=== PATIENT | male | born 1960 | race Caucasian/White ===

== ENCOUNTER 2020-08-30 23:47 | Emergency (ER) | payer BC ==
[~2020-08-30] VITALS: Ht 167.6 cm; Wt 76.4 kg
[2020-08-31] MEDS ORDERED: ANTI FUNGAL
[2020-08-31 00:11] LABS: BASO # 0.1 (0.0-0.2); BASO % 1.4 % (0.0-2.0); EOS # 0.1 (0.0-0.7); EOS % 1.4 % (0-4.0); GRAN % 45.6 % (42.2-75.2); HEMOGLOBIN 13.8 g/dl (13.5-18.0); LYMPH # 1.7 (1.2-3.4); LYMPH % 39.4 % (20.0-51.0); MEAN CELL VOLUME 92 fl (80.0-100.0); MEAN CORPUSCULAR HEMOGLOBIN 30 pg (27.0-31.0); MEAN CORPUSCULAR HGB CONC 33 g/dl (33.0-37.0); MEAN PLATELET VOLUME 9.7 fl (7.4-10.4); MONO # 0.5 (0.1-0.6); MONO % 11.3 % (1.7-9.3); PLATELET COUNT 236 K/mm3 (130-400); RED BLOOD COUNT 4.57 M/mm3 (4.20-5.60); REDCELL DISTRIBUTION WIDTH-CV 13.2 % (11.5-14.5)
[2020-08-31 00:23] LABS: INR 0.9 (0.8-3.0); PROTHROMBIN TIME 9.8 SECONDS (9.7-12.8)
[2020-08-31 00:26] LABS: PARTIAL THROMBOPLASTIN TIME 27.9 SECONDS (26.0-37.0)
[2020-08-31 00:49] LABS: ALANINE AMINOTRANSFERASE 26 U/L (4-49); ALBUMIN 3.9 gm/dL (3.5-5.0); ALKALINE PHOSPHATASE 47 U/L (50-136); ANION GAP 5 mmol/L (7-16); AST,SGOT 46 U/L (15-37); BILIRUBIN,TOTAL 0.3 mg/dL (0.0-1.0); BLOOD UREA NITROGEN 19 mg/dL (9-20); CARBON DIOXIDE 28 mmol/L (22-30); CHLORIDE 104 mmol/L (98-107); CREATININE, serum 1.03 (0.66-1.25); GLUCOSE 104 mg/dL (74-106); LIPASE 105 U/L (23-300); POTASSIUM 3.8 mmol/L (3.4-5.0); SODIUM 137 mmol/L (137-145); TOTAL PROTEIN 6.9 gm/dL (6.4-8.2)
[2020-08-31 01:01] LABS: TROPONIN-I < 0.012 ng/mL (0.000-0.035)
[2020-08-31 01:37] VITALS: TEMP 97.8
[2020-08-31 04:00] VITALS: BP 137/81; PULSE 62
== END 2020-08-31 04:10 | disposition home or self-care (01) ==
LOC: COL.ER 23:47
PROVIDERS: Emergency Medicine
DX: R07.9 Chest pain, unspecified (principal)

== ENCOUNTER 2020-09-18 19:36 | Inpatient (IN) | payer BC ==
[~2020-09-18] VITALS: Ht 167.6 cm; Wt 76.2 kg
[~2020-09-18 19:36] MED LIST changes: -ASPIRIN 81M81 MG/TA2 PO; -ASPIRIN E.C. 8181 MG PO; -BRILINTA90 MG PO; -LIPITOR 40MG TA40 MG PO; -NITROSTAT0.4 MG/TAB SL; -PLAVIX 75MG TAB75 MG PO; -PRINIVIL5 MG PO; -PROTONIX 40MG T40 MG PO; -TYLENOL 325MG325 MG PO; -ZESTRIL 5MG5 MG PO
[2020-09-18 20:05] LABS: BASO # 0.1 (0.0-0.2); BASO % 0.9 % (0.0-2.0); EOS % 0.3 % (0-4.0); GRAN # 5.8 (1.4-6.5); GRAN % 74.4 % (42.2-75.2); HEMATOCRIT 43.4 % (42.0-52.0); LYMPH # 1.2 (1.2-3.4); LYMPH % 15.8 % (20.0-51.0); MEAN CELL VOLUME 88 fl (80.0-100.0); MEAN CORPUSCULAR HEMOGLOBIN 30 pg (27.0-31.0); MEAN CORPUSCULAR HGB CONC 35 g/dl (33.0-37.0); MEAN PLATELET VOLUME 10.1 fl (7.4-10.4); MONO # 0.6 (0.1-0.6); MONO % 8.2 % (1.7-9.3); PLATELET COUNT 246 K/mm3 (130-400); RED BLOOD COUNT 4.96 M/mm3 (4.20-5.60); REDCELL DISTRIBUTION WIDTH-CV 12.8 % (11.5-14.5)
[2020-09-18 20:13] LABS: PROTHROMBIN TIME 11.5 SECONDS (9.7-12.8)
[2020-09-18 20:15] LABS: ALBUMIN 4.4 gm/dL (3.5-5.0); BILIRUBIN,TOTAL 0.6 mg/dL (0.0-1.0); CALCIUM 9.3 mg/dL (8.4-10.2); CREATININE, serum 1.06 (0.66-1.25); PARTIAL THROMBOPLASTIN TIME 30.1 SECONDS (26.0-37.0); POTASSIUM 4.1 mmol/L (3.4-5.0); TOTAL PROTEIN 7.7 gm/dL (6.4-8.2)
[2020-09-18 20:48] LABS: TROPONIN-I 4.89 ng/mL (0.000-0.035)
[2020-09-19] VITALS (87 sets, daily range): BP systolic 119–155; BP diastolic 70–76; PULSE 51–93; TEMP 97.9–98.1; O2SAT 97–99
--- NOTE | 2020-09-19 19:30 | NUR ---
Received report from [facility]. Patient is resting quietly in bed. Reports mild discomfort in right hand/palm that has improved with elevation. Denies presence of chest pain. Scant drainage noted at right radial cath access site. Splint and TR band still in place with 13mL of air inflated. Bruising noted to the right palm and wrist area from previous hematoma. Site is soft, pulses are palpable, and no visible hematoma at this time. All vitals within normal limits. No further needs noted.
[2020-09-20] VITALS (540 sets, daily range): BP systolic 109–142; BP diastolic 64–95; PULSE 51–66; TEMP 97.8–98.4; O2SAT 96–100
--- NOTE | 2020-09-20 01:01 | NUR ---
Began removing air from TR band at 2300. One mL removed from TR band at 2300; no bleeding or hematoma formation noted. Site remains soft and pulses palpable. Vitals within normal limits. An additional 2mL of air removed at 0000. Again, no hematoma formation or bleeding noted. However, patient reports "throbbing," in right arm. Site remains soft and pulses are palpable. No increase in bruising or swelling noted. At this time, 0100, 10mL of air remains in TR band. Dr. Marr notified. Per Dr. Marr, not to remove any more air from TR band this shift. Continue to monitor arm throughout NOC. HepXa drawn at approximately 0015 resulted as 0.07. According to protocol, a 1000 unit bolus should be administered, and the drip should increase by 2.5mL/hr. Notified Dr. Marr of HepXa result. Due to bleeding concerns, Dr. Marr ordered that the bolus NOT be administered, although the drip should be titrated accordingly.
--- NOTE | 2020-09-20 07:15 | NUR ---
Dr. Marr at bedside to see pt. verbal given to d/c heparin gtt at this time. states to continue removing air from TR band 2 hours after heparin has been stopped.
[2020-09-20 08:11] LABS: BASO % 0.6 % (0.0-2.0); EOS % 0.2 % (0-4.0); GRAN # 3.5 (1.4-6.5); GRAN % 66.2 % (42.2-75.2); HEMATOCRIT 41.9 % (42.0-52.0); HEMOGLOBIN 14.3 g/dl (13.5-18.0); LYMPH # 1.2 (1.2-3.4); LYMPH % 23.4 % (20.0-51.0); MEAN CELL VOLUME 88 fl (80.0-100.0); MEAN CORPUSCULAR HEMOGLOBIN 30 pg (27.0-31.0); MEAN CORPUSCULAR HGB CONC 34 g/dl (33.0-37.0); MEAN PLATELET VOLUME 9.7 fl (7.4-10.4); MONO # 0.5 (0.1-0.6); MONO % 9.2 % (1.7-9.3); PLATELET COUNT 228 K/mm3 (130-400); RED BLOOD COUNT 4.76 M/mm3 (4.20-5.60); REDCELL DISTRIBUTION WIDTH-CV 12.9 % (11.5-14.5)
[2020-09-20 08:19] LABS: CALCIUM 8.8 mg/dL (8.4-10.2); CREATININE, serum 0.87 (0.66-1.25); POTASSIUM 4.4 mmol/L (3.4-5.0)
--- NOTE | 2020-09-20 09:40 | NUR ---
Initial visit; Patient thanked [employer] Tender for looking in on him and offering God's blessings.
--- NOTE | 2020-09-20 11:00 | NUR ---
NOTIFIED DATA CENTER OPERATOR FLAQUITA OF TRANSFER ORDERS. STATES SHE WILL INFORM WHEN ROOM IS AVAILABLE. RECEIVED CALL FROM PT'S AT THIS TIME. UPDATE GIVEN.
--- NOTE | 2020-09-20 11:33 | NUR ---
Patient Services Assistant met with patient to discuss discharge planning. Patient lives in [place] with his , Kasie (ph#[phone]) and sees Dr. Marin for primary care. Patient obtains medications from [facility] pharmacy with no difficulties. Patient does not use any DME and reports independence with ADLS. Patient does not have Advance Directives and was not interested in establishing DPOA-HC at this time. Patient plans to return home upon discharge. Patient to transfer up to the medical floor today.
--- NOTE | 2020-09-20 13:30 | NUR ---
PT CALLED THIS RN TO ROOM, PT REPORTS INTERMITTENT CP SINCE 1300. REPORTS PAIN IS LOCALIZED TO LEFT SIDE OF CHEST AND STATES PAIN FEELS "LIKE AN ACHE OR PRESSURE." DENIES SOB/N/V. PRN SL NITRO ADMINISTERED WITH SLIGHT RELIEF OF PAIN. NOTIFIED DR. VAZQUEZ VIA PHONE. ORDER GIVEN FOR EKG AND LABS. CONTACTED RT FOR EKG AND LAB TO DRAW BLOOD.
--- NOTE | 2020-09-20 15:03 | NUR ---
NOTIFIED DR. VAZQUEZ OF PT'S TROPONIN LEVEL AND REPORTED THAT EKG IS COMPLETED.
[2020-09-20 16:11] LABS: PARTIAL THROMBOPLASTIN TIME 122.4 SECONDS (26.0-37.0)
[2020-09-20 16:13] LABS: ALBUMIN 3.5 gm/dL (3.5-5.0); BILIRUBIN,TOTAL 0.5 mg/dL (0.0-1.0); CALCIUM 8.3 mg/dL (8.4-10.2); CREATININE, serum 0.92 (0.66-1.25); POTASSIUM 4.2 mmol/L (3.4-5.0); TOTAL PROTEIN 6.3 gm/dL (6.4-8.2)
[2020-09-20 16:14] LABS: TROPONIN-I 6 HR POST INITIAL 13.5 ng/mL (0.000-0.034)
--- NOTE | 2020-09-20 16:55 | NUR ---
TR band removed at this time. no changes in appearance to bruising to right wrist. radial pulses intact. splint remains in place. will continue to monitor.
--- NOTE | 2020-09-20 18:05 | NUR ---
PT TRANSFERRED TO ROOM 347 VIA W/C WITH TELEMETRY AND ON RA. TRANSFERS SELF TO MEDICAL BED. PHI ESCOBEDO TO BEDSIDE AT THIS TIME.
--- NOTE | 2020-09-20 18:31 | NUR ---
Pt received to floor from ICU.
--- NOTE | 2020-09-20 20:00 | NUR ---
Pt asking how long he has to wear the spling on right arm. Did inform pt to wear continuously until AM when reassessed by Physician. Rt wrist and thumb bruised from heart cath 09/19, extends into rt forearm. Pt reports soreness. Denies chest pain. SL to left AC flushes well.
[2020-09-20 23:59] LABS: BASO % 0.5 % (0.0-2.0); EOS % 0.5 % (0-4.0); GRAN # 3.7 (1.4-6.5); GRAN % 64.9 % (42.2-75.2); HEMATOCRIT 40.2 % (42.0-52.0); HEMOGLOBIN 13.6 g/dl (13.5-18.0); LYMPH # 1.4 (1.2-3.4); LYMPH % 23.9 % (20.0-51.0); MEAN CELL VOLUME 91 fl (80.0-100.0); MEAN CORPUSCULAR HEMOGLOBIN 31 pg (27.0-31.0); MEAN CORPUSCULAR HGB CONC 34 g/dl (33.0-37.0); MEAN PLATELET VOLUME 10.5 fl (7.4-10.4); MONO # 0.6 (0.1-0.6); MONO % 9.9 % (1.7-9.3); PLATELET COUNT 226 K/mm3 (130-400); RED BLOOD COUNT 4.43 M/mm3 (4.20-5.60); REDCELL DISTRIBUTION WIDTH-CV 13.2 % (11.5-14.5)
[2020-09-21 04:12] VITALS: BP 116/56; PULSE 56; TEMP 97.5
[2020-09-21 06:57] VITALS: BP 114/61; PULSE 59; TEMP 98
--- NOTE | 2020-09-21 07:43 | NUR ---
Patient currently sitting up in bed, [facility] arrived just after completing assessment. patient has no concerns at this time.
--- NOTE | 2020-09-21 08:29 | NUR ---
Patient alert and oriented, answers questions appropriately. See assessment. Heart tones strong and even, pulses palpable. No c/o chest/neck/jaw pain or pressure. RUE previous cath site with minimal swelling and bruising noted, radial pulse palpable. No c/o at this time.
[2020-09-21] MEDS ORDERED: BRILINTA90 MG PO (08:31)
[2020-09-21] MEDS ORDERED: LIPITOR 40MG TA40 MG PO (08:31)
[2020-09-21] MEDS ORDERED: NITROSTAT0.4 MG/TAB SL (08:32)
[2020-09-21] MEDS ORDERED: ZESTRIL 5MG5 MG PO (08:32)
[2020-09-21] MEDS ORDERED: TYLENOL 325MG325 MG PO (08:32)
[2020-09-21] MEDS ORDERED: ASPIRIN E.C. 8181 MG PO (08:32)
--- NOTE | 2020-09-21 08:34 | NUR ---
Vascular ultrasound notified of ECHO order.
[2020-09-21] MEDS ORDERED: PLAVIX 75MG TAB75 MG PO (11:13)
[2020-09-21 12:08] VITALS: BP 122/67; PULSE 61; TEMP 97.7
--- NOTE | 2020-09-21 13:36 | NUR ---
End of clinical day. Patient resting in his bed, denies and SOB or chest pain. He states that he is just waiting to be discharged. No concerns at this time.
--- NOTE | 2020-09-21 16:05 | NUR ---
Discharge instructions reviewed with patient and spouse, verbalized understanding. Discharged via wheelchair to auto/home with spouse at 1600.
== END 2020-09-21 16:00 | disposition home or self-care (01) | DRG 247 ==
LOC: COL.ER 19:36 → ICU 20:59 → MEDICAL 20:59 → ICU 09-19 22:05 → SURG 09-20 18:27
PROVIDERS: Emergency Medicine; Internal Medicine Cardiovascular Disease; ADMIT Internal Medicine
PROC: 027034Z Dilation of Coronary Artery, One Artery with Drug-eluting Intraluminal Device, Percutaneous Approach (ICD-10-PCS; principal; 2020-09-20)
PROC: 02C03ZZ Extirpation of Matter from Coronary Artery, One Artery, Percutaneous Approach (ICD-10-PCS; 2020-09-20)
PROC: 4A023N7 Measurement of Cardiac Sampling and Pressure, Left Heart, Percutaneous Approach (ICD-10-PCS; 2020-09-20)
PROC: B2111ZZ Fluoroscopy of Multiple Coronary Arteries using Low Osmolar Contrast (ICD-10-PCS; 2020-09-20)
DX: I21.4 Non-ST elevation (NSTEMI) myocardial infarction (principal); I10 Essential (primary) hypertension; R73.9 Hyperglycemia, unspecified; I25.10 Atherosclerotic heart disease of native coronary artery without angina pectoris; R07.89 Other chest pain; Z90.49 Acquired absence of other specified parts of digestive tract
CPT/HCPCS: 99232-AI; 99239; C1725; C1757; C1769; C1874; C1887; C8924; C9600; J1644; J2250; J2270; J3010; J7030; Q9967

== ENCOUNTER → 2020-09-18 | Outpatient (CLI) | payer BC ==
[~2020-09-18] MED LIST: ANTI FUNGAL; ASPIRIN 81M81 MG/TA2 PO; ASPIRIN E.C. 8181 MG PO; BRILINTA90 MG PO; LIPITOR 40MG TA40 MG PO; NITROSTAT0.4 MG/TAB SL; PLAVIX 75MG TAB75 MG PO; PRINIVIL5 MG PO; PROTONIX 40MG T40 MG PO; TYLENOL 325MG325 MG PO; ZESTRIL 5MG5 MG PO
[2020-09-18 18:18] LABS: HEMATOCRIT 45.2 % (42.0-52.0); HEMOGLOBIN 14.9 g/dl (13.5-18.0); MEAN CELL VOLUME 90 fl (80.0-100.0); MEAN CORPUSCULAR HEMOGLOBIN 30 pg (27.0-31.0); MEAN CORPUSCULAR HGB CONC 33 g/dl (33.0-37.0); PLATELET COUNT 251 K/mm3 (130-400); RED BLOOD COUNT 5.01 M/mm3 (4.20-5.60)
[2020-09-18 18:26] LABS: CALCIUM 9.4 mg/dL (8.4-10.2); CREATININE, serum 1.04 (0.66-1.25); POTASSIUM 4.3 mmol/L (3.4-5.0)
[2020-09-18 18:45] LABS: TROPONIN-I 3.68 ng/mL (0.000-0.035)
== END ==
LOC: COL.LAB 17:36
PROVIDERS: Internal Medicine Interventional Cardiology
DX: R07.89 Other chest pain (principal)

== ENCOUNTER 2020-10-05 08:21 | Day surgery (SDC) | payer BC ==
[2020-10-05] VITALS (13 sets, daily range): BP systolic 101–134; BP diastolic 42–77; PULSE 50–59; TEMP 97.2
[~2020-10-05] VITALS: Ht 168.9 cm; Wt 75.2 kg
[~2020-10-05 08:21] MED LIST changes: +ASPIRIN E.C. 8181 MG PO; +BRILINTA90 MG PO; +LIPITOR 40MG TA40 MG PO; +NITROSTAT0.4 MG/TAB SL; +PLAVIX 75MG TAB75 MG PO; +TYLENOL 325MG325 MG PO; +ZESTRIL 5MG5 MG PO
[2020-10-05 09:26] LABS: HEMOGLOBIN 13.7 g/dl (13.5-18.0); MEAN CELL VOLUME 90 fl (80.0-100.0); MEAN CORPUSCULAR HEMOGLOBIN 30 pg (27.0-31.0); MEAN CORPUSCULAR HGB CONC 33 g/dl (33.0-37.0); MEAN PLATELET VOLUME 9.8 fl (7.4-10.4); PLATELET COUNT 233 K/mm3 (130-400); RED BLOOD COUNT 4.57 M/mm3 (4.20-5.60); REDCELL DISTRIBUTION WIDTH-CV 12.8 % (11.5-14.5)
[2020-10-05] MEDS ORDERED: LIPITOR 40MG TA40 MG PO (09:32)
[2020-10-05 09:35] LABS: CALCIUM 8.7 mg/dL (8.4-10.2); CREATININE, serum 0.99 (0.66-1.25); POTASSIUM 4.4 mmol/L (3.4-5.0)
[2020-10-05 09:37] LABS: INR 1.1 (0.8-3.0); PROTHROMBIN TIME 12.1 SECONDS (9.7-12.8)
[2020-10-05 09:40] LABS: PARTIAL THROMBOPLASTIN TIME 28.7 SECONDS (26.0-37.0)
[2020-10-05] MEDS ORDERED: NITROSTAT0.4 MG/TAB SL (09:46)
[2020-10-05] MEDS ORDERED: PRINIVIL5 MG PO (09:47)
[2020-10-05] MEDS ORDERED: ASPIRIN 81M81 MG/TA2 PO (09:47)
[2020-10-05] MEDS ORDERED: TYLENOL 325MG325 MG PO (09:49)
[2020-10-05] MEDS ORDERED: PROTONIX 40MG T40 MG PO (09:50)
[2020-10-05] MEDS ORDERED: PLAVIX 75MG TAB75 MG PO (09:50)
--- NOTE | 2020-10-05 15:02 | NUR ---
Discharge instructions given to pt.Pt verbalizes understanding.INT removed,catheter tip intact.Dressing to right wrist observed clean,dry,intact,soft to touch.Pt escorted out via wheelchair by this nurse.
== END 2020-10-05 15:21 | disposition home or self-care (01) ==
LOC: COL.CAR
PROVIDERS: Internal Medicine Cardiovascular Disease
DX: I21.4 Non-ST elevation (NSTEMI) myocardial infarction (principal); I25.42 Coronary artery dissection; I25.10 Atherosclerotic heart disease of native coronary artery without angina pectoris; I50.9 Heart failure, unspecified; Z90.89 Acquired absence of other organs; Z98.52 Vasectomy status; Z79.02 Long term (current) use of antithrombotics/antiplatelets; Z79.899 Other long term (current) drug therapy; Z79.82 Long term (current) use of aspirin; Z20.822 Contact with and (suspected) exposure to COVID-19
CPT/HCPCS: J1644; J2250; J3010; J7030; Q9967